=== PATIENT | male | born 1955 | race Caucasian/White ===

== ENCOUNTER 2018-12-20 16:20 | Emergency (ER) | payer MEDICAID, OTHER ==
[~2018-12-20] VITALS: Ht 172.7 cm; Wt 81.6 kg
[2018-12-20] MEDS ORDERED: cloNIDine HCL 0.1 MG TAB ONE (16:33)
[2018-12-20] MEDS ORDERED: cloNIDine HCL 0.1 MG TAB PO ONE (16:45)
[2018-12-20 18:24] LABS: Basophils # (auto) 0.1 uL; Monocytes # (auto) 0.8 uL
[2018-12-20 18:25] LABS: Basophils % (auto) 1.1 % (0.0-2.0); Eosinophils # (auto) 0.3 uL; Eosinophils % (auto) 4.3 % (0.0-7.0); Hematocrit 44.6 % (41.0-53.0); Hemoglobin 15.2 g/dL (13.5-17.5); Lymphocytes # (auto) 1.7 uL; Lymphocytes % (auto) 23.2 % (10.0-50.0); Mean Corpuscular Hemoglobin 34.6 pg (28.0-32.0); Mean Corpuscular Hgb Conc. 34.1 g/dL (32.0-36.0); Mean Corpuscular Volume 101.5 fL (80.0-100.0); Monocytes % (auto) 10.4 % (0.0-12.0); Neutrophils # (auto) 4.4 uL; Nucleated Red Blood Cells % 0.1 %; Platelet Count (auto) 177 10^3/uL (140-450); Red Blood Cells 4.39 10^6/uL (4.5-5.90); Red Cell Distribution Width 13.5 % (11.8-14.3); White Blood Cell 7.3 10^3/uL (4.4-10.8)
[2018-12-20 18:43] LABS: Alanine Aminotransferase 22 U/L (16-61); Albumin 3.2 g/dL (3.4-5.0); Anion Gap 3 (5-15); Aspartate Aminotransferase 21 U/L (15-37); BUN/Creatinine Ratio 15.8; Blood Urea Nitrogen 15 mg/dL (7-18); Calcium 8.2 mg/dL (8.5-10.1); Carbon Dioxide 31 mmol/L (21-32); Chloride 108 mmol/L (98-107); GFR African American 104 mL/min; GFR Non-African American 86 mL/min; Glucose 70 mg/dL (74-106); Potassium 4.1 mmol/L (3.5-5.1); Sodium 142 mmol/L (136-145)
[2018-12-20 18:47] LABS: Alkaline Phosphatase 58 U/L (45-117); Bilirubin, Total 0.5 mg/dL (0.2-1.0); Total Protein 6.2 g/dL (6.4-8.2)
[2018-12-20 18:57] VITALS: BP 115/76
== END 2018-12-20 19:39 | disposition home or self-care (01) ==
LOC: ER 16:28
DX: I16.0 Hypertensive urgency (principal)
CPT/HCPCS: 36415; 71046; 80053; 84484; 85025; 93005